=== PATIENT | female | born 1935 | race Caucasian/White ===

== ENCOUNTER 2021-05-30 18:43 | Emergency (ER) | payer MEDICARE, OTHER ==
[~2021-05-30] VITALS: Ht 152.4 cm; Wt 54.4 kg
[~2021-05-30 18:43] MED LIST: AUGMENTIN 500-500 MG PO; BELLADONNA-PH16.2 MG PO; CARAFATE1 GM PO; CITRACAL + D C1 EACH PO; COMBIVENT INH14.7 GM INH; FLAX SEED OIL1000 MG PO; FLEXERIL5 MG PO; IRON55 MG PO; KLOR-CON M2020 MEQ PO; LASIX40 MG PO; LEVAQUIN500 MG PO; LEVAQUIN750 MG; LIPITOR40 MG PO; MULTI VITAMIN1 EACH PO; NEURONTIN300 MG PO; OXYCODONE HCL5 MG PO; PLAQUENIL200 MG PO; PREDNISONE20 MG; PREDNISONE20 MG PO; PRILOSEC20 MG PO; PROZAC20 MG PO; SYSTANE ULTRA1 EACH OP; UNISOM50 MG PO; [UNRECOGNIZED DRUG - OTHER]
--- OUTSIDE RECORDS SUMMARY | 2021-05-30 18:46 | XMS ---
PreManage Notification: MICHAEL MOORE Security Mobile Developer Events No recent Security Events currently on file [facility] There are no care providers on record at this time. Zakiya has no Care Guidelines for this patient. Ashleigh VISIT COUNT (12 MO.) 1 MELANIE Hood TOTAL 1 NOTE: Visits indicate total known visits. ED/UCC VISIT TRACKING (12 MO.) 05/30/2021 18:44 MELANIE Villanueva OR TYPE: Emergency COMPLAINT: - FLU SYMPTOMS INPATIENT VISIT TRACKING (12 MO.) No inpatient visits to display in this time frame [email or web address]
== END 2021-05-30 20:55 | disposition home or self-care (01) ==
LOC: ED 18:43
DX: J06.9 Acute upper respiratory infection, unspecified (principal); I50.9 Heart failure, unspecified; Z87.891 Personal history of nicotine dependence; Z88.8 Allergy status to other drugs, medicaments and biological substances; Z79.899 Other long term (current) drug therapy; Z79.891 Long term (current) use of opiate analgesic; Z20.822 Contact with and (suspected) exposure to COVID-19
CPT/HCPCS: 99283; U0003